=== PATIENT | female | born 1955 | race Caucasian/White ===

== ENCOUNTER 2020-10-08 08:52 | Inpatient (IN) | payer MEDICAID, OTHER ==
[~2020-10-08] VITALS: Ht 162.6 cm; Wt 131.0 kg
--- NOTE | 2020-10-08 09:23 | NUR ---
HERN[facility]N, EMS REPORTS GLF THIS MORNING WHILE PT WAS WALKING TO BATHROOM. DENIES LOSS OF CONSIOUSNESS, DENIES TRAUMA, NO MIDLINE CERVICAL TENDERNESS. PT STATES FALLS ARE HAPPENING MORE FREQUENTLY, USES WALKER AT HOME. USES 3L O2 AT HOME. PT A&O, HAS SOME MEMORY PROBLEMS. RESPS EVEN AND UNLABORED, SLIGHT TWITCHING OF UPPER EXTREMETIES NOTED. MED STUDENT AT BEDSIDE FRO EVAL.
[2020-10-08 09:55] LABS: BASOPHILS % (AUTO) 0 % (0-1); EOSINOPHILS % (AUTO) 0 % (1-7); LYMPHOCYTES % (AUTO) 6 % (22-44); MEAN CORPUSCULAR HEMOGLOBIN 26.2 pg (27.0-34.8); MEAN CORPUSCULAR HGB CONC 31.4 g/dL (32.4-35.8); MEAN PLATELET VOLUME 7.1 fL (7.4-10.4); MONOCYTES % (AUTO) 3 % (2-9); NEUTROPHILS % (AUTO) 91 % (42-75); PLATELET COUNT 235 x10^3/uL (130-400); RED CELL DISTRIBUTION WIDTH 15.9 % (9.6-15.2)
--- NOTE | 2020-10-08 09:55 | NUR ---
TASK RN, PT REMOVED FROM BEDPAN, URINE COLLECTED. PT TO CT. PER DR RYDER, STRAIGHT CATH REQUIRED FOR UA.
[2020-10-08 10:06] LABS: ALANINE AMINOTRANSFERASE 20 U/L (12-78); ALBUMIN 3.5 g/dL (3.4-5.0); ANION GAP 4 mmol/L (5-15); CALCIUM 9.2 mg/dL (8.5-10.1); CHLORIDE 104 mmol/L (98-107); CREATININE 1.26 mg/dL (0.55-1.02)
[2020-10-08 10:08] LABS: ALKALINE PHOSPHATASE 67 U/L (45-117); BILIRUBIN,TOTAL 0.4 mg/dL (0.2-1.0); TOTAL PROTEIN 7.7 g/dL (6.4-8.2)
[2020-10-08 10:30] LABS: MD SCAN
[2020-10-08 10:42] LABS: FREE T4 (FREE THYROXINE) 1.74 ng/dL (0.76-1.46)
--- NOTE | 2020-10-08 10:45 | NUR ---
STRAIGHT CATH URINE SAMPLE COLLECTED AND SENT TO LAB
[2020-10-08 10:49] LABS: MICROSCOPIC INDICATED
[2020-10-08] MEDS ORDERED: TETR-16 PO (11:00)
[2020-10-08] MEDS ORDERED: LEVO175T5 PO (11:00)
[2020-10-08] MEDS ORDERED: ALOG1TAB5 PO (11:00)
[2020-10-08] MEDS ORDERED: INSU100V8 SQ (11:00)
[2020-10-08] MEDS ORDERED: METF500T27 PO (11:00)
[2020-10-08] MEDS ORDERED: HYDR25TA6 PO (11:00)
[2020-10-08] MEDS ORDERED: IBUP-1223 PO (11:00)
[2020-10-08] MEDS ORDERED: GABA300C PO (11:00)
[2020-10-08] MEDS ORDERED: CITA20TA6 PO (11:00)
[2020-10-08] MEDS ORDERED: AMLO-211 PO (11:00)
[2020-10-08] MEDS ORDERED: MORP60TA63 PO (11:00)
[2020-10-08] MEDS ORDERED: MORP-30 PO (11:00)
[2020-10-08] MEDS ORDERED: ENAL20TA9 PO (11:00)
--- NOTE | 2020-10-08 11:00 | NUR ---
med req complete
--- NOTE | 2020-10-08 12:44 | NUR ---
ED TECHS AT BEDSIDE TO ASSIST WITH AMBULATION
--- NOTE | 2020-10-08 12:54 | NUR ---
ERMD AT BEDSIDE TO DISCUSS POC
--- NOTE | 2020-10-08 12:54 | NUR ---
4 PERSON ASSIST FAILED AMBULATION
[2020-10-08] MEDS ORDERED: PLEASE ENTER ALLERGIES MC SCH (13:30)
--- NOTE | 2020-10-08 13:35 | NUR ---
[facility] AT BEDSIDE
--- NOTE | 2020-10-08 13:39 | NUR ---
REPORT GIVEN TO RECEIVING RN MAKEDA ASHFORD IN 349
[2020-10-08 14:25] VITALS: BP 130/74
[2020-10-08] MEDS: INSULIN LISPRO 100 UNITS/ML, PEN SQ-INSULIN SCH ×2 (16:30→21:09)
[2020-10-08] MEDS ORDERED: LABETALOL 5MG/ML, 20ML IVPush PRN (17:00)
[2020-10-08] MEDS: GABAPENTIN 300 MG CAPSULE PO SCH ×2 (17:02→20:23)
[2020-10-08] MEDS: FUROSEMIDE 20 MG/2 ML IV SCH (17:03)
[2020-10-08 19:12] VITALS: BP 137/76
[2020-10-08] MEDS: TETRACYCLINE HCL 250 MG CAPSULE PO SCH (21:00)
[2020-10-09 00:52] VITALS: BP 100/54
[2020-10-09] MEDS: LEVOTHYROXINE 175 MCG TABLET PO SCH (06:05)
[2020-10-09 07:16] VITALS: BP 135/78
[2020-10-09] MEDS: INSULIN LISPRO 100 UNITS/ML, PEN SQ-INSULIN SCH ×4 (07:18→21:37)
[2020-10-09] MEDS ORDERED: morphine SULFATE 60 MG TABLET.ER PO SCH (09:00)
[2020-10-09] MEDS: CITALOPRAM 20 MG TABLET PO SCH (09:05)
[2020-10-09] MEDS: FUROSEMIDE 20 MG/2 ML IV SCH ×2 (09:05→16:33)
[2020-10-09] MEDS: GABAPENTIN 300 MG CAPSULE PO SCH ×3 (09:05→21:34)
[2020-10-09] MEDS: AMLODIPINE 10 MG TAB PO SCH (09:05)
[2020-10-09] MEDS: LIOTHYRONINE 5 MCG TABLET PO SCH (09:06)
[2020-10-09] MEDS: HYDROCHLOROTHIAZIDE 25 MG TABLET PO SCH (09:06)
[2020-10-09] MEDS ORDERED: TETRACYCLINE HCL 250 MG CAPSULE ONE (09:55)
[2020-10-09] MEDS: TETRACYCLINE HCL 250 MG CAPSULE PO SCH ×2 (10:04→21:34)
[2020-10-09 13:12] VITALS: BP 136/76
[2020-10-09] MEDS: morphine SULFATE 60 MG TABLET.ER PO SCH (14:00)
[2020-10-09 19:35] VITALS: BP 166/81
[2020-10-10 00:04] VITALS: BP 146/86
[2020-10-10 05:12] LABS: BASOPHILS % (AUTO) 1 % (0-1); EOSINOPHILS % (AUTO) 3 % (1-7); LYMPHOCYTES % (AUTO) 15 % (22-44); MEAN CORPUSCULAR HEMOGLOBIN 26.3 pg (27.0-34.8); MEAN PLATELET VOLUME 7.3 fL (7.4-10.4); MONOCYTES % (AUTO) 9 % (2-9); NEUTROPHILS % (AUTO) 72 % (42-75); PLATELET COUNT 223 x10^3/uL (130-400); RED BLOOD COUNT 4.89 x10^6/uL (3.82-5.3); RED CELL DISTRIBUTION WIDTH 15.6 % (9.6-15.2)
[2020-10-10 05:13] LABS: MD NO
[2020-10-10 05:26] LABS: CHLORIDE 97 mmol/L (98-107)
[2020-10-10 05:35] LABS: ALANINE AMINOTRANSFERASE 23 U/L (12-78); ALBUMIN 3.5 g/dL (3.4-5.0); ALKALINE PHOSPHATASE 66 U/L (45-117); ANION GAP 3 mmol/L (5-15); BILIRUBIN,TOTAL 0.8 mg/dL (0.2-1.0); CALCIUM 9.7 mg/dL (8.5-10.1); CREATININE 0.96 mg/dL (0.55-1.02); TOTAL PROTEIN 7.8 g/dL (6.4-8.2)
[2020-10-10] MEDS: LEVOTHYROXINE 175 MCG TABLET PO SCH (06:08)
[2020-10-10] MEDS ORDERED: MAGNESIUM SULFATE PMX 2GM/50ML 50 ML IV ONE (06:30)
[2020-10-10] MEDS: INSULIN LISPRO 100 UNITS/ML, PEN SQ-INSULIN SCH ×4 (07:00→20:48)
[2020-10-10] MEDS: FUROSEMIDE 20 MG/2 ML IV SCH ×2 (07:30→15:56)
[2020-10-10] MEDS: TETRACYCLINE HCL 250 MG CAPSULE PO SCH ×2 (09:00→20:43)
[2020-10-10] MEDS: POTASSIUM CHLORIDE 20 MEQ TAB.ER.PRT PO SCH ×2 (09:07→20:42)
[2020-10-10] MEDS: HYDROCHLOROTHIAZIDE 25 MG TABLET PO SCH (09:07)
[2020-10-10] MEDS: AMLODIPINE 10 MG TAB PO SCH (09:07)
[2020-10-10] MEDS: CITALOPRAM 20 MG TABLET PO SCH (09:07)
[2020-10-10] MEDS: LIOTHYRONINE 5 MCG TABLET PO SCH (09:07)
[2020-10-10] MEDS: GABAPENTIN 300 MG CAPSULE PO SCH ×3 (09:08→20:42)
[2020-10-10] MEDS: ACETAMINOPHEN 325 MG TABLET PO PRN (09:11)
[2020-10-10 10:23] VITALS: BP 165/73
[2020-10-10] MEDS ORDERED: FUROSEMIDE 40 MG/4 ML IV ONE (10:30)
[2020-10-10 12:32] VITALS: BP 125/68
[2020-10-10 12:39] VITALS: BP 125/68
[2020-10-10] MEDS: morphine SULFATE 60 MG TABLET.ER PO SCH (13:06)
[2020-10-10 18:31] VITALS: BP 148/85
[2020-10-11 01:04] VITALS: BP 132/67
[2020-10-11] MEDS: LEVOTHYROXINE 175 MCG TABLET PO SCH (05:47)
[2020-10-11 06:02] LABS: ANION GAP 2 mmol/L (5-15); BASOPHILS % (AUTO) 1 % (0-1); CALCIUM 9.6 mg/dL (8.5-10.1); CHLORIDE 96 mmol/L (98-107); EOSINOPHILS % (AUTO) 3 % (1-7); LYMPHOCYTES % (AUTO) 15 % (22-44); MEAN CORPUSCULAR HEMOGLOBIN 26.3 pg (27.0-34.8); MEAN CORPUSCULAR HGB CONC 31.8 g/dL (32.4-35.8); MEAN PLATELET VOLUME 7.1 fL (7.4-10.4); MONOCYTES % (AUTO) 10 % (2-9); NEUTROPHILS % (AUTO) 72 % (42-75); PLATELET COUNT 212 x10^3/uL (130-400); RED BLOOD COUNT 5.24 x10^6/uL (3.82-5.3); RED CELL DISTRIBUTION WIDTH 15.8 % (9.6-15.2)
[2020-10-11 06:04] LABS: CREATININE 1.05 mg/dL (0.55-1.02); MD NO
[2020-10-11 07:37] VITALS: BP 144/78
[2020-10-11] MEDS: POTASSIUM CHLORIDE 20 MEQ TAB.ER.PRT PO SCH (08:05)
[2020-10-11] MEDS: AMLODIPINE 10 MG TAB PO SCH (08:05)
[2020-10-11] MEDS: LIOTHYRONINE 5 MCG TABLET PO SCH (08:05)
[2020-10-11] MEDS: INSULIN LISPRO 100 UNITS/ML, PEN SQ-INSULIN SCH ×3 (08:05→16:00)
[2020-10-11] MEDS: CITALOPRAM 20 MG TABLET PO SCH (08:06)
[2020-10-11] MEDS: FUROSEMIDE 20 MG/2 ML IV SCH ×3 (08:06→16:15)
[2020-10-11] MEDS: HYDROCHLOROTHIAZIDE 25 MG TABLET PO SCH (08:06)
[2020-10-11] MEDS: GABAPENTIN 300 MG CAPSULE PO SCH ×2 (08:06→16:13)
[2020-10-11] MEDS: TETRACYCLINE HCL 250 MG CAPSULE PO SCH (08:07)
[2020-10-11] MEDS: ACETAMINOPHEN 325 MG TABLET PO PRN (11:04)
[2020-10-11 13:25] VITALS: BP 148/90
[2020-10-11] MEDS: morphine SULFATE 60 MG TABLET.ER PO SCH (13:27)
[2020-10-11] MEDS ORDERED: POTA20TA89 PO (14:43)
[2020-10-11] MEDS ORDERED: FURO-93 PO (14:43)
[2020-10-11] MEDS ORDERED: LIOT5TAB10 PO (14:43)
== END 2020-10-11 16:35 | DRG 291 ==
LOC: ED 10:31 → EDIP 12:54 → SUATTDRO 12:59 → 3N 13:32
PROVIDERS: ADMIT Family Medicine; ATTEND Family Medicine
PROC: 0T9B70Z Drainage of Bladder with Drainage Device, Via Natural or Artificial Opening (ICD-10-PCS; principal; 2020-10-08)
DX: I11.0 Hypertensive heart disease with heart failure (principal); G93.41 Metabolic encephalopathy; J96.21 Acute and chronic respiratory failure with hypoxia; Z68.42 Body mass index [BMI] 45.0-49.9, adult; E03.9 Hypothyroidism, unspecified; I50.33 Acute on chronic diastolic (congestive) heart failure; E11.9 Type 2 diabetes mellitus without complications; E66.01 Morbid (severe) obesity due to excess calories; Z88.8 Allergy status to other drugs, medicaments and biological substances; F32.9 Major depressive disorder, single episode, unspecified; F41.9 Anxiety disorder, unspecified; G89.29 Other chronic pain; W18.39XA Other fall on same level, initial encounter; Y93.89 Activity, other specified; Y92.89 Other specified places as the place of occurrence of the external cause; Y99.8 Other external cause status
CPT/HCPCS: 36415; 70450; 71045; 80048; 80053; 81001; 82962; 83735; 83880; 84439; 84443; 84481; 85025; 93306; 96374; 99285; G0378; J1940; J1815; J3475

== ENCOUNTER 2020-10-27 12:43 | Inpatient (IN) | payer MEDICAID ==
[~2020-10-27] VITALS: Ht 163.8 cm; Wt 129.5 kg
[~2020-10-27 12:43] MED LIST: ALOG1TAB5 PO; AMLO-211 PO; CITA20TA6 PO; ENAL20TA9 PO; FURO-93 PO; GABA300C PO; HYDR25TA6 PO; IBUP-1223 PO; INSU100V8 SQ; LEVO175T5 PO; LIOT5TAB10 PO; METF500T27 PO; MORP-30 PO; MORP60TA63 PO; POTA20TA89 PO; TETR-16 PO
--- NOTE | 2020-10-27 12:52 | NUR ---
PATIENT ARRIVES FROM [place] WITH [facility] FOR ONE WEEK OF N/V DIARRHEA. SHE WAS RECENTLY HOSPITALIZED BUT SHE DOESN'T KNOW WHY. PLACED ON ISOLATION FOR DIARRHEA POSSIBLE CDIFF RECENT HOSPITALIZATION. PATIENT REPORTED TO HAVE KIDNEY FAILURE BY [place] TO MEDICS, BUT SHE IS UNAWARE OF THIS. SHE IS AOX4 BUT THEN SEEMS HAZY ABOUT HER HISTORY, OR RECENT HOSPITALIZATION COURSE
--- NOTE | 2020-10-27 13:38 | NUR ---
STRAIGHT CATH'D PATIENT. PATIENT EXCORIATED FROM ANUS IN FOLDS TO LABIA. RED, SOME BLEEDING
[2020-10-27 13:39] LABS: BASOPHILS % (AUTO) 1 % (0-1); EOSINOPHILS % (AUTO) 2 % (1-7); LYMPHOCYTES % (AUTO) 10 % (22-44); MEAN CORPUSCULAR HEMOGLOBIN 26.5 pg (27.0-34.8); MEAN CORPUSCULAR HGB CONC 32.1 g/dL (32.4-35.8); MEAN PLATELET VOLUME 8.8 fL (7.4-10.4); MONOCYTES % (AUTO) 6 % (2-9); NEUTROPHILS % (AUTO) 82 % (42-75); PLATELET COUNT 173 x10^3/uL (130-400); RED BLOOD COUNT 5.36 x10^6/uL (3.82-5.3); RED CELL DISTRIBUTION WIDTH 16.8 % (9.6-15.2)
[2020-10-27 13:50] LABS: ALANINE AMINOTRANSFERASE 49 U/L (12-78); ALBUMIN 3.3 g/dL (3.4-5.0); ANION GAP 8 mmol/L (5-15); CALCIUM 9.5 mg/dL (8.5-10.1); CHLORIDE 98 mmol/L (98-107); CREATININE 2.43 mg/dL (0.55-1.02)
[2020-10-27 13:55] LABS: ALKALINE PHOSPHATASE 99 U/L (45-117); BILIRUBIN,TOTAL 0.6 mg/dL (0.2-1.0); TOTAL PROTEIN 7.7 g/dL (6.4-8.2); TROPONIN I < 0.015 ng/mL (0.000-0.045)
--- NOTE | 2020-10-27 13:55 | NUR ---
PATIENT CAN'T POOP AT THIS TIME. WILL REASSESS
[2020-10-27 13:58] LABS: MICROSCOPIC NOT IND
--- NOTE | 2020-10-27 14:01 | NUR ---
CRITICAL VALUE BUN 138
[2020-10-27 14:04] LABS: MD NO
[2020-10-27] MEDS ORDERED: SODIUM BICARBONATE 1 MEQ/ML, 50ML VIAL ONE (14:28)
[2020-10-27] MEDS ORDERED: CALCIUM CHLORIDE 10%, 10ML SYR ONE (14:28)
[2020-10-27] MEDS ORDERED: DEXTROSE 50%, 50ML SYRINGE ONE (14:29)
[2020-10-27] MEDS ORDERED: SODIUM CHLORIDE FLUSH 10ML SYR IVF PRN (14:30)
[2020-10-27] MEDS ORDERED: CALCIUM CHLORIDE 10%, 10ML SYR IVPush ONE (14:30)
[2020-10-27] MEDS ORDERED: SODIUM CHLORIDE 0.9% 1,000ML IVBOLUS ONE (14:30)
[2020-10-27] MEDS ORDERED: DEXTROSE 50%, 50ML SYRINGE IVPush ONE (14:30)
[2020-10-27] MEDS ORDERED: INSULIN REGULAR 100 UNITS/ML, 3ML VIAL IVPush ONE (14:30)
[2020-10-27] MEDS ORDERED: SODIUM BICARB 8.4%, 50ML SYRINGE IVPush ONE (14:30)
[2020-10-27] MEDS ORDERED: INSULIN SINGLE DOSE, ER ONE (14:31)
--- NOTE | 2020-10-27 14:50 | NUR ---
FSBS 13. AOX4. HR MOSTLY IN 70'S UT HAS RUNS UP TO 140, LET KNOW. HAS SOME HYPOTENSION NAMELY DIASTOLIC INTO 40'S. Addendum: 10/27/20 at 1505 by MINGO FSBS 198
[2020-10-27] MEDS: SODIUM CHLORIDE 0.9% 1,000 ML IV SCH ×2 (14:52→17:33)
[2020-10-27] MEDS ORDERED: ACETAMINOPHEN 325 MG TABLET PO PRN (15:00)
[2020-10-27] MEDS ORDERED: LABETALOL 5MG/ML, 20ML IVPush PRN (15:00)
[2020-10-27] MEDS ORDERED: ONDANSETRON 2MG/ML, 2ML IVPush PRN (15:00)
--- NOTE | 2020-10-27 15:06 | NUR ---
CALLED X1 NURSE NOT AVAILABLE WILL CALL BACK
--- NOTE | 2020-10-27 15:25 | NUR ---
REPORT TO CLAUDIA BEAN. PATIENT AOX4 IN BED RAILS UP.
[2020-10-27] MEDS ORDERED: PHARMACY MAY ADJ FOR RENAL FX MC PRN (15:30)
[2020-10-27] MEDS ORDERED: GLUCAGON 1 MG IM PRN (16:00)
[2020-10-27] MEDS: INSULIN LISPRO 100 UNITS/ML, PEN SQ-INSULIN SCH ×2 (16:00→20:48)
[2020-10-27] MEDS ORDERED: DEXTROSE 4 GM TAB.CHEW PO PRN (16:00)
[2020-10-27] MEDS ORDERED: DEXTROSE 50%, 50ML SYRINGE IVPush PRN (16:00)
--- NOTE | 2020-10-27 16:05 | NUR ---
BREAK RN: CALLED TO ROOM BY CATH LABORATORY TECHNICIAN, CONCERN ABOUT VARIABLE HR. PT VERY TREMULOUS, C/O BEING HOT, SWEATY. CHECK OF BLOOD SUGAR WAS 40. PT GIVEN HALF AMP OF D50. PRIMARY NURSE ANDRZEJ RETURN TO ROOM. DISCUSSED WITH ANDRZEJ, HER TO NOTIFY DR GARCIA. REQUEST PAGEANT DIRECTOR TO ORDER STAT GLUCOSE DRAW. REPORT TO ANDRZEJ CHAMPAGNE.
--- NOTE | 2020-10-27 16:07 | NUR ---
REPORT FROM JOSE CHAMPAGNE WHO WATCHED WHILE i WAS AT LUNCH. PATIENT HAS BS OF 40. GAVE D50. RECHECKED BS AND ITS 108 10 MIN AFTER ADMINISTRATION OF DEXTROSE AND PATIENT FEELING IMPROVED. WILL MONITOR.
--- NOTE | 2020-10-27 16:12 | NUR ---
CALLED DR GARCIA TO ALERT HER THAT: 1. FSBS WAS 40. GAVE 1/2 AMP D50 THEN WAS 108 FOLLOWING 2. HR CONSISTENTLY GOING UP TO 150 RATE THEN BACK DOWN, NOT ACCOMPANIED WITH CHEST PAIN. 3. PATIENT DIASTOLIC REMAINS IN THE 40'S.
[2020-10-27 16:13] LABS: TROPONIN I < 0.015 ng/mL (0.000-0.045)
[2020-10-27 17:32] VITALS: BP 94/58
[2020-10-27 18:39] VITALS: BP 95/61
[2020-10-27] MEDS: HEPARIN 5,000 UNITS/ML, 1ML SQ SCH (20:29)
[2020-10-27] MEDS: SODIUM CHLORIDE FLUSH 10ML SYR IVF SCH (20:30)
[2020-10-27] MEDS: VANCOMYCIN 50 MG/ML ORAL SUSP PO SCH (20:48)
[2020-10-28] MEDS: VANCOMYCIN 50 MG/ML ORAL SUSP PO SCH ×4 (00:04→19:35)
[2020-10-28 01:02] VITALS: BP 98/59
[2020-10-28] MEDS: HEPARIN 5,000 UNITS/ML, 1ML SQ SCH ×3 (02:58→19:35)
[2020-10-28] MEDS: SODIUM CHLORIDE 0.9% 1,000 ML IV SCH ×3 (02:59→17:40)
[2020-10-28] MEDS: LEVOTHYROXINE 175 MCG TABLET PO SCH (05:05)
[2020-10-28 05:29] LABS: BASOPHILS % (AUTO) 1 % (0-1); EOSINOPHILS % (AUTO) 2 % (1-7); LYMPHOCYTES % (AUTO) 15 % (22-44); MEAN CORPUSCULAR HEMOGLOBIN 26.6 pg (27.0-34.8); MEAN CORPUSCULAR HGB CONC 32.4 g/dL (32.4-35.8); MEAN PLATELET VOLUME 9.1 fL (7.4-10.4); MONOCYTES % (AUTO) 8 % (2-9); NEUTROPHILS % (AUTO) 73 % (42-75); PLATELET COUNT 143 x10^3/uL (130-400); RED BLOOD COUNT 4.92 x10^6/uL (3.82-5.3); RED CELL DISTRIBUTION WIDTH 16.7 % (9.6-15.2)
[2020-10-28 05:30] LABS: ALBUMIN 2.8 g/dL (3.4-5.0); ANION GAP 4 mmol/L (5-15); CALCIUM 9.3 mg/dL (8.5-10.1); CHLORIDE 104 mmol/L (98-107); MD NO
[2020-10-28 05:43] LABS: ALANINE AMINOTRANSFERASE 38 U/L (12-78); ALKALINE PHOSPHATASE 77 U/L (45-117); BILIRUBIN,TOTAL 0.6 mg/dL (0.2-1.0); CREATININE 1.78 mg/dL (0.55-1.02); TOTAL PROTEIN 6.5 g/dL (6.4-8.2)
[2020-10-28] MEDS ORDERED: LIOTHYRONINE 5 MCG TABLET PO SCH (06:00)
[2020-10-28] MEDS: INSULIN LISPRO 100 UNITS/ML, PEN SQ-INSULIN SCH ×4 (07:00→20:59)
[2020-10-28 07:44] VITALS: BP 144/82
[2020-10-28] MEDS: AMLODIPINE 10 MG TAB PO SCH (07:56)
[2020-10-28] MEDS: CITALOPRAM 20 MG TABLET PO SCH (07:56)
[2020-10-28] MEDS: SODIUM CHLORIDE FLUSH 10ML SYR IVF SCH ×2 (07:57→20:58)
[2020-10-28] MEDS ORDERED: morphine SULFATE 60 MG TABLET.ER PO SCH (09:00)
[2020-10-28] MEDS ORDERED: MORP30TA81 PO (13:37)
[2020-10-28] MEDS ORDERED: LEVO175C2 PO (13:37)
[2020-10-28] MEDS ORDERED: METF-734 PO (13:37)
[2020-10-28] MEDS ORDERED: IBUP-1223 PO (13:37)
[2020-10-28] MEDS ORDERED: GABA800T5 PO (13:37)
[2020-10-28] MEDS ORDERED: ENAL20TA9 PO (13:37)
[2020-10-28] MEDS ORDERED: AMLO-211 PO (13:37)
[2020-10-28] MEDS ORDERED: MORP60TA34 PO (13:37)
[2020-10-28] MEDS ORDERED: CITA20TA6 PO (13:37)
[2020-10-28] MEDS ORDERED: HYDR25TA6 PO (13:37)
[2020-10-28] MEDS ORDERED: INSU100I34 SQ (13:46)
[2020-10-28] MEDS: morphine SULFATE 60 MG TABLET.ER PO SCH (14:00)
[2020-10-28 14:29] VITALS: BP 127/69
[2020-10-28 18:28] VITALS: BP 145/75
[2020-10-29] MEDS: SODIUM CHLORIDE 0.9% 1,000 ML IV SCH ×2 (00:10→08:27)
[2020-10-29] MEDS: VANCOMYCIN 50 MG/ML ORAL SUSP PO SCH ×4 (00:10→20:24)
[2020-10-29 01:54] VITALS: BP 122/78
[2020-10-29] MEDS: HEPARIN 5,000 UNITS/ML, 1ML SQ SCH ×3 (03:16→20:23)
[2020-10-29] MEDS: LEVOTHYROXINE 175 MCG TABLET PO SCH (05:47)
[2020-10-29 05:58] LABS: FREE T4 (FREE THYROXINE) 1.53 ng/dL (0.76-1.46)
[2020-10-29 07:49] VITALS: BP 188/83
[2020-10-29] MEDS: INSULIN LISPRO 100 UNITS/ML, PEN SQ-INSULIN SCH ×4 (07:49→20:25)
[2020-10-29 08:15] LABS: ANION GAP 6 mmol/L (5-15); CALCIUM 9.5 mg/dL (8.5-10.1); CHLORIDE 111 mmol/L (98-107)
[2020-10-29 08:16] LABS: CREATININE 1.08 mg/dL (0.55-1.02)
[2020-10-29 08:20] VITALS: BP 154/78
[2020-10-29] MEDS: AMLODIPINE 10 MG TAB PO SCH (08:27)
[2020-10-29] MEDS: CITALOPRAM 20 MG TABLET PO SCH (08:27)
[2020-10-29] MEDS: SODIUM CHLORIDE FLUSH 10ML SYR IVF SCH ×2 (08:28→20:24)
[2020-10-29] MEDS ORDERED: POLYETHYLENE GLYCOL 17 GM PACKET PO PRN (12:00)
[2020-10-29] MEDS: SENNA/DOCUSATE TABLET PO SCH (12:12)
[2020-10-29] MEDS: morphine SULFATE 60 MG TABLET.ER PO SCH (13:01)
[2020-10-29] MEDS ORDERED: morphine SULFATE 60 MG TABLET.ER PO SCH (14:00)
[2020-10-29 14:47] VITALS: BP 158/74
[2020-10-29] MEDS: GABAPENTIN 300 MG CAPSULE PO SCH ×2 (15:56→20:24)
[2020-10-29 19:58] VITALS: BP 133/79
[2020-10-30 01:06] VITALS: BP 143/80
[2020-10-30] MEDS: VANCOMYCIN 50 MG/ML ORAL SUSP PO SCH ×4 (01:12→22:11)
[2020-10-30] MEDS: HEPARIN 5,000 UNITS/ML, 1ML SQ SCH ×3 (03:56→22:11)
[2020-10-30 05:14] LABS: BASOPHILS % (AUTO) 1 % (0-1); EOSINOPHILS % (AUTO) 3 % (1-7); LYMPHOCYTES % (AUTO) 21 % (22-44); MEAN CORPUSCULAR HEMOGLOBIN 26.6 pg (27.0-34.8); MEAN CORPUSCULAR HGB CONC 32.3 g/dL (32.4-35.8); MEAN PLATELET VOLUME 8.5 fL (7.4-10.4); MONOCYTES % (AUTO) 9 % (2-9); NEUTROPHILS % (AUTO) 67 % (42-75); PLATELET COUNT 136 x10^3/uL (130-400); RED BLOOD COUNT 5.24 x10^6/uL (3.82-5.3); RED CELL DISTRIBUTION WIDTH 16.7 % (9.6-15.2)
[2020-10-30 05:16] LABS: MD NO
[2020-10-30 05:29] LABS: ANION GAP 4 mmol/L (5-15); CALCIUM 9.8 mg/dL (8.5-10.1); CHLORIDE 110 mmol/L (98-107)
[2020-10-30 05:31] LABS: CREATININE 0.98 mg/dL (0.55-1.02)
[2020-10-30] MEDS: LEVOTHYROXINE 175 MCG TABLET PO SCH (05:41)
[2020-10-30 06:47] VITALS: BP 134/81
[2020-10-30] MEDS: INSULIN LISPRO 100 UNITS/ML, PEN SQ-INSULIN SCH ×4 (07:24→22:19)
[2020-10-30] MEDS: SENNA/DOCUSATE TABLET PO SCH (07:39)
[2020-10-30] MEDS: CITALOPRAM 20 MG TABLET PO SCH (07:39)
[2020-10-30] MEDS: GABAPENTIN 300 MG CAPSULE PO SCH ×3 (07:39→22:11)
[2020-10-30] MEDS: AMLODIPINE 10 MG TAB PO SCH (07:39)
[2020-10-30] MEDS: SODIUM CHLORIDE FLUSH 10ML SYR IVF SCH ×2 (07:40→21:00)
[2020-10-30 12:52] VITALS: BP 108/72
[2020-10-30] MEDS: morphine SULFATE 60 MG TABLET.ER PO SCH (13:33)
[2020-10-30 18:33] VITALS: BP 126/76
[2020-10-31 01:35] VITALS: BP_SYST 111; BP_SYST 119; BP_DIAS 72; BP_DIAS 74
[2020-10-31] MEDS: VANCOMYCIN 50 MG/ML ORAL SUSP PO SCH ×3 (04:22→15:36)
[2020-10-31] MEDS: LEVOTHYROXINE 175 MCG TABLET PO SCH (06:35)
[2020-10-31] MEDS: HEPARIN 5,000 UNITS/ML, 1ML SQ SCH ×2 (06:35→13:57)
[2020-10-31] MEDS: INSULIN LISPRO 100 UNITS/ML, PEN SQ-INSULIN SCH ×3 (07:00→15:38)
[2020-10-31] MEDS: SENNA/DOCUSATE TABLET PO SCH (08:28)
[2020-10-31] MEDS: AMLODIPINE 10 MG TAB PO SCH (08:29)
[2020-10-31] MEDS: CITALOPRAM 20 MG TABLET PO SCH (08:29)
[2020-10-31] MEDS: SODIUM CHLORIDE FLUSH 10ML SYR IVF SCH (08:29)
[2020-10-31] MEDS: GABAPENTIN 300 MG CAPSULE PO SCH ×2 (08:29→15:35)
[2020-10-31 08:42] VITALS: BP 131/77
[2020-10-31] MEDS ORDERED: INSU100I11 SQ-INSULIN (08:42)
[2020-10-31] MEDS ORDERED: VANC1VIA36 PO (08:42)
[2020-10-31] MEDS ORDERED: HEPA50002 SQ (08:42)
[2020-10-31] MEDS ORDERED: FURO-93 PO (08:42)
[2020-10-31] MEDS: morphine SULFATE 60 MG TABLET.ER PO SCH (13:56)
[2020-10-31] MEDS ORDERED: OXYC5TAB98 PO (14:25)
[2020-10-31 14:44] VITALS: BP 117/61
== END 2020-10-31 16:10 | DRG 371 ==
LOC: ED 13:01 → EDIP 14:20 → SUATTDRO 14:30 → 4WST 17:09
PROVIDERS: ADMIT Internal Medicine; ATTEND Internal Medicine
DX: A04.72 Enterocolitis due to Clostridium difficile, not specified as recurrent (principal); N17.0 Acute kidney failure with tubular necrosis; G92 Toxic encephalopathy; E46 Unspecified protein-calorie malnutrition; E66.2 Morbid (severe) obesity with alveolar hypoventilation; E87.1 Hypo-osmolality and hyponatremia; F11.20 Opioid dependence, uncomplicated; I50.32 Chronic diastolic (congestive) heart failure; J96.10 Chronic respiratory failure, unspecified whether with hypoxia or hypercapnia; Z68.42 Body mass index [BMI] 45.0-49.9, adult; E03.9 Hypothyroidism, unspecified; E11.9 Type 2 diabetes mellitus without complications; E86.0 Dehydration; R74.01 Elevation of levels of liver transaminase levels; E86.1 Hypovolemia; E87.5 Hyperkalemia; F32.9 Major depressive disorder, single episode, unspecified; F41.9 Anxiety disorder, unspecified; G89.29 Other chronic pain; I11.0 Hypertensive heart disease with heart failure; J44.9 Chronic obstructive pulmonary disease, unspecified; Z79.4 Long term (current) use of insulin; Z82.49 Family history of ischemic heart disease and other diseases of the circulatory system; Z87.891 Personal history of nicotine dependence; Z99.81 Dependence on supplemental oxygen; Z88.8 Allergy status to other drugs, medicaments and biological substances
CPT/HCPCS: 36415; 96374; 96375; 99291; J3370; 80048; 80053; 81003; 82947; 82962; 83605; 83690; 83735; 84132; 84439; 84443; 84484; 85025; 93005; G0378; J1644; J1815; J7030